=== PATIENT | female | born 1995 | race Caucasian/White ===

== ENCOUNTER 2025-03-05 22:49 | Emergency (ER) | payer BC, SELFPAY ==
--- OUTSIDE RECORDS SUMMARY | 2025-03-05 22:53 | XMS_ITS | Clinical Summary ---
Author Organization [facility] Address [address] [place] [id number] Care Team Providers Care Field Tax Auditor Name Role Phone Pcp, No Primary Care Provider Unavailabl e Allergies No known active allergies Medications acetaminophen (TYLENOL) 325 mg tablet Take by mouth every 4 hours if needed. Max acetaminophen dose: 4000mg in 24 hrs. Active ibuprofen (ADVIL; MOTRIN) 200 mg tablet Take 200 mg by mouth every 6 hours. Active gabapentin (NEURONTIN) 300 mg capsuleIndication s:Neuropathic pain,Bulging lumbar disc,Lumbar radiculopathy Take 1 capsule by mouth 4 times daily. Increase dosage as discussed. 120 capsule 3 04/22/20 19 Active gabapentin (NEURONTIN) 600 mg tabletIndications :Lumbar radiculopathy Take 1 tablet by mouth 3 times daily. 90 tablet 3 05/27/20 Active DULoxetine (CYMBALTA) 30 mg Delayed-release capsuleIndication s:Lumbar radiculopathy Take 1 capsule by mouth once daily. For 10 days, then twice daily. 60 capsule 3 05/27/20 19 Active Active Problems Problem Noted Date Diagnosed Date Neck pain 01/23/2019 Immunizations Immunization Administration Dates Next Due DTaP 06/16/2006 HPV 9 (Gardasil 9) 02/01/2019 Tdap 02/01/2019,06/16/2006 Varicella Vaccine 06/16/2006 Family History Medical History Relation Name Comments No Known Problems Brother No Known Problems Father Heart attack Maternal Grandfather Stroke Maternal Grandfather No Known Problems Maternal Grandmother No Known Problems Mother Diabetes type II Paternal Grandfather Cancer Paternal Grandmother unknown type Diabetes type I Paternal Grandmother Diabetes type I Sister Relation Name Status Comments Brother Alive Father Alive Maternal Grandfather Alive Maternal Grandmother Alive Mother Alive Paternal Grandfather Alive Paternal Grandmother Sister Alive Social History Tobacco Use Types Packs/Day Years Used Date Smoking Tobacco: Never Smokeless Tobacco: Never Tobacco Cessation:Counseling Given: Yes Alcohol Use Standard Drinks/Week Comments Yes 0 (1 standard drink = 0.6 oz pur e alcohol) PHQ-2 Answer Date Recorded PHQ-2 Score 2 03/21/2019 Comments No Sex and Gender Information Value Date Recorded Sex Assigned at Not on file Legal Sex Female 3:12 PM [employer] Gender Identity Not on file Sexual Orientation Not on file Obstetrics History Last Filed Vital Signs Vital Sign Reading Time Taken Comments Blood Pressure 120/78 08/09/2019 10:36 AM CDT Pulse 80 08/09/2019 10:36 AM CDT Temperature 36.9 C (98.4 F) 08/09/2019 10:36 AM CDT Respiratory Rate 20 03/01/2019 10:5 2 PM CDT Oxygen Saturation 100% 08/09/2019 10: 36 AM CDT Inhaled Oxygen Concentration - - Weight 83.3 kg (183 lb 9.6 oz) 08/09/2019 10:36 AM CDT shoes and coat on Height 175.3 cm (5' 9) 03/01/2019 10:5 2 PM CDT Body Mass Index 27.11 03/01/2019 10:52 PM CDT Plan of Treatment Health Maintenance Due Date Last Done Comments Depression screening for age 12+ 2006 HIV for age 15-65 2009 Hepatitis C screening for age 18-79 2012 Pap test for age 21-65 2015 BMI (ht and wt on same day) for age 18+ 02/07/2020 02/06/2019, 02/01/2019, 01/29/2019, Additional history exists COVID-19 vaccine series (2023- season) 2024 Influenza Vaccine (Season Ended) 2025 Tetanus booster 02/01/2029 02/01/2019, 06/16/2006 Tdap Completed 02/01/2019, 06/16/2006 Pneumococcal series for age 6-49 Aged Out No longer eligible based on patient's age to complete this topic Insurance [facility] Care Teams Field Tax Auditor Relationship Specialty Start Date End Date Pcp, No . PCP - General 12/07/22
[2025-03-05 22:57] VITALS: BP 140/89; PULSE 98; RESP 18; TEMP 36.9; O2SAT 99; BMI 31.0
--- NOTE | 2025-03-05 23:24 | ED_ITS ---
HPI - General Adult General Date Seen: 03/05/25 Chief complaint: Laceration/Wound Stated complaint: cut lip Time Seen by Provider: 03/05/25 22:56 History of Present Illness HPI narrative: Patient is a 29-year-old woman generally healthy, she was bitten at home by her own dog, she says that she startled the dog and the dog bit her on the nose. She has a large laceration on the left ala, several small lacerations on the bridge of the nose and the right side of the nose. She is uncertain of her last tetanus, she states the dog is not up-to-date on rabies. Related Data Home Medications ?Medication ?Instructions ?Recorded ?Confirmed No Known Home Medications 03/05/2502/14 Allergies Allergy/AdvReac Type Severity Reaction Status Date / Time No Known Drug Allergies Allergy Verified 03/05/25 23:00 PFSH PFS Social History Smoking Status: Never smoker How often do you have a drink containing alcohol: never AUDIT-C Alcohol total score: 0 Non-prescribed substance use: denies use Exam Narrative: Exam Narrative: Vital signs reviewed In general, alert, nontoxic woman. ENT: She has a 2 cm laceration involving the left ala, on closer inspection this is through and through. However, the nares are intact. She has several small, couple mm long superficial cuts on the bridge and right side of her nose. Airway is patent. Const: Vital Signs, click to edit/add: Vital Signs - 24 hr 03/05/25 22:57 Temperature 98.4 F Pulse Rate [Left P ulse Oximeter] 98 Respiratory Rate 18 Blood Pressure [Ri ght Upper Arm] 140/89 H Pulse Oximetry 99 Oxygen Delivery Me thod Room Air Course Course ED Course: Procedure note: The wound was anesthetized using lidocaine with epinephrine and explored, as mentioned it is through and through. Will be irrigated with saline, the smaller lacerations we will clean, these do not require repair. Discussed with her that by wounds are higher risk for infection, will cover her with Augmentin but reviewed that they are still possible risk of infection here. I do not think we have the option of leaving this for cosmetic reasons. She understands the rationale for closure. I placed 3 simple interrupted deep sutures using 5 0 Vicryl, and then I closed the skin using a total of 6 simple interrupted superficial sutures. She tolerated this well without immediate complication. Routine wound care discussed. Suture removal in roughly 5 to 7 days, return at any time for signs of infection. Prescribed Augmentin 3 Instymeds. Stressed the importance of keeping her dog up-to-date on rabies, she will quarantine the dog at home for 10 days. Vital Signs Vital signs: Initial Vital Signs Temperature 98.4 F 03/05/25 22:57 Temperature Source Temporal Artery Scan 03/05/25 22:57 Pulse Rate 98 03/05/25 22:57 Respiratory Rate 18 03/05/25 22:57 Blood Pressure 140/89 H 03/05/25 22:57 Blood Pressure Mean 106 H 03/05/25 22:57 Blood Pressure Position Sitting 03/05/25 22:57 Pulse Oximetry 99 03/05/25 22:57 Oxygen Delivery Method Room Air 03/05/25 22:57 Vital Signs Temperature 98.4 F 03/05/25 22:57 Pulse Rate 98 03/05/25 22:57 Respiratory Rate 18 03/05/25 22:57 Blood Pressure 140/89 H 03/05/25 22:57 Pulse Oximetry 99 03/05/25 22:57 Oxygen Delivery Method Room Air 03/05/25 22:57 Temperature 98.4 F 03/05/25 22:57 Pulse Rate 98 03/05/25 22:57 Respiratory Rate 18 03/05/25 22:57 Blood Pressure 140/89 H 03/05/25 22:57 Pulse Oximetry 99 03/05/25 22:57 Oxygen Delivery Method Room Air 03/05/25 22:57 Discharge Plan Discharge Clinical Impression: Complex laceration of face Patient Disposition: Home, Self-Care Condition: Improved Instructions: Laceration (ED) Additional Instructions: Keep wound clean and protected. It is okay to shower. Use an ointment such as Vaseline or Aquaphor, apply throughout the day to keep the wound from getting dry and scabbed over. Suture removal in about 5-7 days in clinic. Bite wounds are at high risk of infection. Take the Augmentin as prescribed, but if you notice signs of infection such as increasing redness, swelling, pain or drainage, you need to be seen again right away. Your tetanus is up-to-date, it was last given in 2019. Prescriptions: No Action No Known Home Medications Follow Up/Referrals: Smita Juarez PA-C [Primary Care Provider, Family Practice] Stand Alone Forms: [facility] Info Instructions
== END 2025-03-06 00:36 | disposition home or self-care (01) ==
PROVIDERS: Emergency Provider Emergency Medicine; PCP Physician Assistant Medical
DX: S01.21XA Laceration without foreign body of nose, initial encounter (principal); W54.0XXA Bitten by dog, initial encounter
CPT/HCPCS: 12051; 99283; 99284